=== PATIENT | male | born 1990 | race Hispanic/Latino ===

== ENCOUNTER 2022-07-21 11:37 | Emergency (ER) | payer OTHER ==
[~2022-07-21] VITALS: Ht 182.9 cm; Wt 96.3 kg
[2022-07-21 11:39] VITALS: BP 130/78
[2022-07-21] MEDS ORDERED: ROSU5TAB5 PO (11:50)
[2022-07-21] MEDS ORDERED: AMOX875T PO (12:12)
== END 2022-07-21 12:19 | disposition home or self-care (01) ==
LOC: M ED 11:37
DX: J02.9 Acute pharyngitis, unspecified (principal); R04.0 Epistaxis; R59.0 Localized enlarged lymph nodes; Z20.828 Contact with and (suspected) exposure to other viral communicable diseases; E78.00 Pure hypercholesterolemia, unspecified; Z79.899 Other long term (current) drug therapy